=== PATIENT | male | born 1935 | race Caucasian/White ===

== ENCOUNTER 2021-12-04 15:21 | Inpatient (IN) | payer OTHER, MEDICARE ==
[~2021-12-04 15:21] MED LIST: Iopamidol-370 76% 500 ML 1 ML ONE
[2021-12-04] MEDS ORDERED: Boostrix 0.5 ML (Tdap) VIAL ONE (15:27)
[2021-12-04] MEDS ORDERED: Ondansetron PF 4 MG/2 ML Vial ONE (15:27)
[2021-12-04] MEDS ORDERED: Fentanyl 100 MCG/2 ML VIAL ONE (15:28)
[2021-12-04] MEDS ORDERED: ceFAZolin (BATCH) 2 GM/100 ML BAG ONE (15:28)
[2021-12-04] MEDS ORDERED: Xylocaine 1% w/ Epi 1:100K 10 ML VIAL ONE (15:33)
[2021-12-04 16:21] LABS: Hemoglobin 11.6 g/dL (14.0-18.0); Mean Corpuscular HGB CONC 33.7 g/dL (32.0-36.0); Mean Corpuscular Hemoglobin 31.2 pg (27.0-31.0); Mean Corpuscular Volume 92.6 fL (78.0-98.0); Mean Platelet Volume 7.4 fL (7.4-10.4); Platelet Count 199 thou/uL (130-400); RBC Distribution Width 12.8 % (11.5-14.5); Red Blood Cell (RBC) Count 3.74 mill/uL (4.70-6.10); White Blood Cell (WBC) Count 27.1 thou/uL (4.8-10.8)
[2021-12-04 16:28] LABS: PTT 31.9 sec (22.9-36.1); Prothrombin Time 13.2 sec (12.0-14.7)
[2021-12-04 16:39] LABS: ALT (SGPT) 11 U/L (8-55); AST (SGOT) 23 U/L (5-34); Alkaline Phosphatase 68 U/L (40-110); Anion Gap 14 mmol/L (10-20); BUN (Urea Nitrogen) 30 mg/dL (8.4-25.7); Bilirubin, Total 0.5 mg/dL (0.2-1.2); Calc. Creatinine Clearance 0 mL/min (70-130); Carbon Dioxide 25 mmol/L (23-31); Chloride 105 mmol/L (98-107); Globulin 2.5 g/dL (2.4-3.5); Glucose 118 mg/dL (83-110); Protein, Total 6.5 g/dL (5.8-8.1); Sodium 140 mmol/L (136-145)
[2021-12-04 16:44] LABS: Band 1 % (5-11); Lymphocytes 42 % (21-51); MDiff Complete? YES; Monocytes 4 % (0-10); Neutrophil 44 % (42-75); Platelet Morphology Comment Appears Adequate; RBC Morphology Normal; Reactive Lymphocytes 8 % (0-10); Reflex for Review?? YES
[2021-12-04] MEDS ORDERED: Labetalol HCl 100 MG/20 ML VIAL ONE (17:14)
[2021-12-04] MEDS ORDERED: Promethazine HCl 25 MG/ML VIAL IM PRN (17:27)
[2021-12-04] MEDS ORDERED: Dextrose 50% Abboject 50 ML SYRINGE SLOW IVP PRN (17:27)
[2021-12-04] MEDS ORDERED: Ondansetron PF 4 MG/2 ML Vial IVP PRN (17:27)
[2021-12-04] MEDS ORDERED: Dextrose 5% in Water 1,000 ML IV PRN (17:27)
[2021-12-04] MEDS ORDERED: hydrALAZINE 20 MG/ML VIAL SLOW IVP PRN (17:27)
[2021-12-04] MEDS ORDERED: traMADol HCl 50 MG TAB PO PRN ×3 (17:30→19:20)
[2021-12-04] MEDS ORDERED: Cyclobenzaprine 10 MG TAB PO PRN (17:30)
[2021-12-04] MEDS ORDERED: Rib Fracture Protocol IV SCH (17:30)
[2021-12-04 17:58] LABS: Magnesium 2.1 mg/dL (1.6-2.6); Phosphorus 3.3 mg/dL (2.3-4.7)
[2021-12-04] MEDS ORDERED: traMADol HCl 50 MG TAB PO SCH (18:00)
[2021-12-04] MEDS: Sodium Chloride 0.9% 1,000 ML IV SCH (18:52)
[2021-12-04] MEDS: Acetaminophen 500 MG TAB PO SCH (18:54)
[2021-12-04] MEDS ORDERED: Famotidine 20 MG TAB PO SCH (21:00)
[2021-12-04] MEDS ORDERED: Gabapentin 300 MG CAP PO SCH (21:00)
[2021-12-04] MEDS ORDERED: Metoprolol Tartrate 25 MG TAB PO SCH ×2 (21:00)
[2021-12-04] MEDS: traMADol HCl 50 MG TAB PO SCH (21:02)
[2021-12-04] MEDS: Gabapentin 100 MG CAP PO SCH (21:04)
[2021-12-04] MEDS: Famotidine 20 MG TAB PO SCH (21:06)
[2021-12-04] MEDS: Senokot S 8.6-50 MG TAB PO SCH (21:06)
[2021-12-05] MEDS: Acetaminophen 500 MG TAB PO SCH ×5 (00:47→23:02)
[2021-12-05] MEDS: Sodium Chloride 0.9% 1,000 ML IV SCH (03:28)
[2021-12-05] MEDS ORDERED: Sodium Chloride 0.9% 1,000 ML IV SCH ×2 (04:00→08:00)
[2021-12-05] MEDS ORDERED: Hydrocortisone Sod Succ/PF 100 mg/2 ml Vial IVP SCH ×2 (04:30→06:00)
[2021-12-05 04:52] LABS: Anion Gap 12 mmol/L (10-20); BUN (Urea Nitrogen) 35 mg/dL (8.4-25.7); Calc. Creatinine Clearance 39 mL/min (70-130); Carbon Dioxide 24 mmol/L (23-31); Chloride 108 mmol/L (98-107); Glucose 110 mg/dL (83-110); Potassium 3.8 mmol/L (3.5-5.1); Sodium 140 mmol/L (136-145)
[2021-12-05 04:55] LABS: Phosphorus 4.4 mg/dL (2.3-4.7)
[2021-12-05 05:18] LABS: Band 3 % (5-11); Hemoglobin 8.6 g/dL (14.0-18.0); Lymphocytes 69 % (21-51); MDiff Complete? YES; Mean Corpuscular HGB CONC 33.3 g/dL (32.0-36.0); Mean Corpuscular Hemoglobin 31.5 pg (27.0-31.0); Mean Corpuscular Volume 94.3 fL (78.0-98.0); Mean Platelet Volume 7.7 fL (7.4-10.4); Monocytes 1 % (0-10); Neutrophil 27 % (42-75); Platelet Count 152 thou/uL (130-400); RBC Distribution Width 13.1 % (11.5-14.5); Red Blood Cell (RBC) Count 2.72 mill/uL (4.70-6.10); White Blood Cell (WBC) Count 18.9 thou/uL (4.8-10.8)
[2021-12-05] MEDS: traMADol HCl 50 MG TAB PO SCH ×3 (06:18→21:24)
[2021-12-05] MEDS ORDERED: Metoprolol Tartrate 25 MG TAB PO SCH (09:00)
[2021-12-05] MEDS: Senokot S 8.6-50 MG TAB PO SCH ×2 (09:49→21:24)
[2021-12-05] MEDS: Saccharomyces boulardii 250 MG CAP PO SCH (09:49)
[2021-12-05] MEDS: Metoprolol Tartrate 25 MG TAB PO SCH ×2 (09:49→21:24)
[2021-12-05] MEDS: Polyethylene Glycol 3350 17 GM Packet PO SCH (09:50)
[2021-12-05] MEDS: Gabapentin 100 MG CAP PO SCH ×3 (09:50→21:24)
[2021-12-05] MEDS: Enoxaparin Sodium 40 MG/0.4 ML SYRINGE SC SCH (09:50)
[2021-12-05 16:19] LABS: Bacteria/HPF None Seen HPF (None Seen); Bilirubin Negative (Negative); Blood, Urine Negative (Negative); Clarity Clear (Clear); Glucose, Urine (Dipstick) Normal (Negative); Ketone, Urine Negative (Negative); Leukocyte Negative Leu/uL (Negative); Nitrite Negative (Negative); Protein, Urine (Dipstick) 10 mg/dL (Neg-Trace); RBC/HPF 0-3 HPF (0-3); Specific Gravity, Urine 1.033 (1.002-1.036); Squamous Epithelial 0-3 HPF (0-3); Urobilinogen Normal mg/dL (Less than 2); WBC/HPF 0-3 HPF (0-3); pH, Urine 5.5 (5.0-9.0)
[2021-12-05 16:21] LABS: Urine Culture Reflex No No
[2021-12-05] MEDS: Famotidine 20 MG TAB PO SCH (21:24)
[2021-12-05 22:39] LABS: SARS-CoV-2 PCR by NAA Not Detected (NotDetected)
[2021-12-06] MEDS: traMADol HCl 50 MG TAB PO SCH (05:33)
[2021-12-06] MEDS: Acetaminophen 500 MG TAB PO SCH ×2 (05:33→08:12)
[2021-12-06 05:36] LABS: Anion Gap 10 mmol/L (10-20); BUN (Urea Nitrogen) 30 mg/dL (8.4-25.7); Calc. Creatinine Clearance 57 mL/min (70-130); Calcium 8.3 mg/dL (7.8-10.44); Carbon Dioxide 24 mmol/L (23-31); Chloride 108 mmol/L (98-107); Glucose 101 mg/dL (83-110); Potassium 4.2 mmol/L (3.5-5.1); Sodium 138 mmol/L (136-145)
[2021-12-06 06:56] LABS: Hemoglobin 8.5 g/dL (14.0-18.0); Mean Corpuscular HGB CONC 33.1 g/dL (32.0-36.0); Mean Corpuscular Hemoglobin 31.6 pg (27.0-31.0); Mean Corpuscular Volume 95.5 fL (78.0-98.0); Mean Platelet Volume 8.3 fL (7.4-10.4); Platelet Count 142 thou/uL (130-400); RBC Distribution Width 13.2 % (11.5-14.5); Red Blood Cell (RBC) Count 2.69 mill/uL (4.70-6.10)
[2021-12-06 07:22] LABS: Band 4 % (5-11); Eosinophils 1 % (0-10); Lymphocytes 58 % (21-51); MDiff Complete? YES; Monocytes 6 % (0-10); Neutrophil 31 % (42-75); Platelet Morphology Comment Appears Adequate; Polychromasia SLIGHT = 2-3 cells (100X) (0-2/hpf)
[2021-12-06] MEDS: Enoxaparin Sodium 40 MG/0.4 ML SYRINGE SC SCH (08:09)
[2021-12-06] MEDS: Gabapentin 100 MG CAP PO SCH ×3 (08:09→20:13)
[2021-12-06] MEDS: Senokot S 8.6-50 MG TAB PO SCH ×2 (08:10→20:14)
[2021-12-06] MEDS: Polyethylene Glycol 3350 17 GM Packet PO SCH (08:10)
[2021-12-06] MEDS: Metoprolol Tartrate 25 MG TAB PO SCH ×2 (08:10→20:14)
[2021-12-06] MEDS: Saccharomyces boulardii 250 MG CAP PO SCH (08:10)
[2021-12-06] MEDS ORDERED: traMADol HCl 50 MG TAB PO PRN (11:30)
[2021-12-06] MEDS ORDERED: Ketorolac Tromethamine 30 MG/ML VIAL IVP SCH (11:30)
[2021-12-06] MEDS: Acetaminophen/Codeine 30-300mg Tablet PO SCH ×3 (12:02→23:50)
[2021-12-06] MEDS: Ketorolac Tromethamine 30 MG/ML VIAL IVP SCH ×3 (12:04→23:48)
[2021-12-06] MEDS: Lisinopril 10 MG TAB PO SCH (20:12)
[2021-12-06] MEDS: tiZANidine HCl 4 MG TAB PO SCH (20:13)
[2021-12-07] MEDS: Ketorolac Tromethamine 30 MG/ML VIAL IVP SCH ×2 (05:18→12:31)
[2021-12-07] MEDS: Acetaminophen/Codeine 30-300mg Tablet PO SCH ×3 (05:21→18:30)
[2021-12-07] MEDS: Gabapentin 100 MG CAP PO SCH ×3 (09:27→21:13)
[2021-12-07] MEDS: Enoxaparin Sodium 40 MG/0.4 ML SYRINGE SC SCH (09:27)
[2021-12-07] MEDS: tiZANidine HCl 4 MG TAB PO SCH ×2 (09:28→21:13)
[2021-12-07] MEDS: Senokot S 8.6-50 MG TAB PO SCH ×2 (09:28→21:13)
[2021-12-07] MEDS: Metoprolol Tartrate 25 MG TAB PO SCH ×2 (09:28→21:14)
[2021-12-07] MEDS: Polyethylene Glycol 3350 17 GM Packet PO SCH (09:32)
[2021-12-07] MEDS ORDERED: Ibuprofen 200 MG TAB PO PRN (15:45)
[2021-12-07] MEDS ORDERED: Magnesium Citrate 300 ML BOT PO SCH (15:45)
[2021-12-07] MEDS: Lisinopril 10 MG TAB PO SCH (21:14)
[2021-12-08] MEDS: Acetaminophen/Codeine 30-300mg Tablet PO SCH ×5 (00:35→23:46)
[2021-12-08] MEDS: Gabapentin 100 MG CAP PO SCH ×3 (09:14→21:52)
[2021-12-08] MEDS: Senokot S 8.6-50 MG TAB PO SCH ×2 (09:14→21:54)
[2021-12-08] MEDS: tiZANidine HCl 4 MG TAB PO SCH ×2 (09:15→21:54)
[2021-12-08] MEDS: Metoprolol Tartrate 25 MG TAB PO SCH ×2 (09:15→21:54)
[2021-12-08] MEDS: Enoxaparin Sodium 40 MG/0.4 ML SYRINGE SC SCH (09:16)
[2021-12-08] MEDS: Polyethylene Glycol 3350 17 GM Packet PO SCH (09:16)
[2021-12-08] MEDS: Lisinopril 10 MG TAB PO SCH (21:53)
[2021-12-09 02:14] VITALS: BMI 26.5
[2021-12-09] MEDS: Acetaminophen/Codeine 30-300mg Tablet PO SCH ×2 (05:53→15:20)
[2021-12-09] MEDS: Gabapentin 100 MG CAP PO SCH ×2 (09:11→15:19)
[2021-12-09] MEDS: tiZANidine HCl 4 MG TAB PO SCH (09:12)
[2021-12-09] MEDS: Enoxaparin Sodium 40 MG/0.4 ML SYRINGE SC SCH (09:12)
[2021-12-09] MEDS: Metoprolol Tartrate 25 MG TAB PO SCH ×2 (09:12→09:14)
[2021-12-09] MEDS: Polyethylene Glycol 3350 17 GM Packet PO SCH (09:12)
[2021-12-09] MEDS: Senokot S 8.6-50 MG TAB PO SCH (09:13)
[2021-12-09 13:23] VITALS: TEMP 98.3
[2021-12-09 16:30] VITALS: BP 112/69
== END 2021-12-09 16:36 | DRG 184 ==
LOC: ERS 15:21 → 2NO 17:34 → SURG B 12-05 12:16
PROVIDERS: ADMIT Nurse Practitioner Acute Care; ATTEND Surgery
PROC: 0HQDXZZ Repair Right Lower Arm Skin, External Approach (ICD-10-PCS; principal; 2021-12-04)
DX: S22.41XA Multiple fractures of ribs, right side, initial encounter for closed fracture (principal); S32.039A Unspecified fracture of third lumbar vertebra, initial encounter for closed fracture; C85.90 Non-Hodgkin lymphoma, unspecified, unspecified site; C95.90 Leukemia, unspecified not having achieved remission; N17.9 Acute kidney failure, unspecified; S46.012A Strain of muscle(s) and tendon(s) of the rotator cuff of left shoulder, initial encounter; Z20.822 Contact with and (suspected) exposure to COVID-19; G62.9 Polyneuropathy, unspecified; I48.91 Unspecified atrial fibrillation; N28.1 Cyst of kidney, acquired; N18.9 Chronic kidney disease, unspecified; I12.9 Hypertensive chronic kidney disease with stage 1 through stage 4 chronic kidney disease, or unspecified chronic kidney disease; M19.012 Primary osteoarthritis, left shoulder; S80.11XA Contusion of right lower leg, initial encounter; S51.812A Laceration without foreign body of left forearm, initial encounter; V43.52XA Car driver injured in collision with other type car in traffic accident, initial encounter
CPT/HCPCS: 36415; 36416; 70450; 71045; 71260; 72125; 74177; 80048; 80053; 81001; 82533; 83605; 83735; 84100; 84484; 85025; 85060; 85610; 85730; 86850; 86860; 86870; 86880; 86900; 86901; 86905; 86922; 86970; 86978; 90715; 93005; 93306; G0390; J0690; J1650; J1720; J1885; J2405; J3010; J7050; Q9967; U0003; U0005